=== PATIENT | male | born 1950 | race Caucasian/White ===

== ENCOUNTER 2020-01-14 04:58 | Inpatient (IN) ==
--- NOTE | 2019-12-18 15:59 | PAT Medication Instructions ---
Medication Instructions Date of Service December 18, 2019 Home Medications amlodipine 5 mg PO QAM aspirin 81 mg PO QAM carvedilol 6.25 mg PO BID chlorthalidone 25 mg PO QAM cholecalciferol (vitamin D3) [Vitamin D3] 1,000 unit PO QAM insulin aspart U-100 [Novolog U-100 Insulin aspart] 1 sliding scale dose SUBCUT USEASDIRECTD insulin degludec [Tresiba FlexTouch U-100] 82 unit SUBCUT QAM irbesartan 300 mg PO QAM metformin 1,000 mg PO BID potassium chloride 10 meq PO QAM rosuvastatin 10 mg PO Q OTHER DAY tamsulosin 0.4 mg PO QPM Continue as directed rosuvastatin 10 mg PO Q OTHER DAY DO NOT take the morning of surgery metformin 1,000 mg PO BID potassium chloride 10 meq PO QAM irbesartan 300 mg PO QAM insulin aspart U-100 [Novolog U-100 Insulin aspart] 1 sliding scale dose SUBCUT USEASDIRECTD chlorthalidone 25 mg PO QAM cholecalciferol (vitamin D3) [Vitamin D3] 1,000 unit PO QAM Take morning of surgery With a small sip of water, OTHERWISE NOTHING TO EAT OR DRINK AFTER MIDNIGHT: amlodipine 5 mg PO QAM aspirin 81 mg PO QAM carvedilol 6.25 mg PO BID Take evening before surgery carvedilol 6.25 mg PO BID insulin aspart U-100 [Novolog U-100 Insulin aspart] 1 sliding scale dose SUBCUT USEASDIRECTD metformin 1,000 mg PO BID tamsulosin 0.4 mg PO QPM Insulin Dependent Diabetic Patients * Test your blood sugar the morning of surgery * If Blood Sugar is GREATER THAN 150, take HALF of your regular dose of: insulin degludec [Tresiba FlexTouch U-100] (41 units) * If Blood Sugar is LESS THAN 150, DO NOT TAKE ANY: insulin degludec [Tresiba FlexTouch U-100] 82 unit SUBCUT QAM Other Notes If you have any questions please call us at [phone] or [phone] or [phone] or [phone]
--- NOTE | 2019-12-19 08:23 | History & Physical Report ---
Date of Service December 19, 2019 date of surgery: 01-14-20 Assessment & Plan (1) Arthritis of knee, left: Risks and benefits of procedure discussed in detail today, patient would like to proceed with a Left total knee replacement at [facility] as scheduled. will obtain medical clearance from Dr Campbell prior to surgery as well as obtain PATs at [facility]. Will place on ASA 81mg po bid x 1 month post op, f/u 2 weeks post op for routine post-operative care and x-ray, sooner if having any problems. will make arrangements for HHPT at the time of discharge. At this point in time, has failed conservative measures and would like to proceed with surgical intervention. The risks and benefits have been discussed including, but not limited to, risk of infection, nerve injury, stiffness, loss of motion, failure to improve, etc. Reasonable outcomes and options of treatment were discussed. An explanation of appropriate alternatives to the procedure that may be advantageous were discussed and their risks and benefits, as well as the risks and benefits of not proceeding with treatment. I offered to answer any additional inquiries concerning the treatment involved. All the patient's questions were answered. The patient is agreeable, understanding of the treatment plan and alternatives, and wishes to proceed with the treatment plan. History of Present Illness Chief Complaint: left knee pain Primary Care Provider: Slade Campbell Mr Licea is a 69 year old male who is here for a follow up of left knee pain, presents for pre-op prior to a left total knee replacement at [facility]. He presents with pain and stiffness on the left side. He states that the symptoms have been chronic non-traumatic. Currently the patient states that the symptoms are moderate-severe. The pain is described as aching and throbbing. He rates his current pain as 2/10. The symptoms are aggravated by ascending stairs, daily activities, descending stairs, first steps while awake, kneeling, movement, repetitive activities, sleeping on the affected side, squatting, standing, walking and weight bearing. In addition to left knee pain the patient is also experiencing crepitus, decreased mobility, difficulty bending, difficulty going to sleep, limping, instability, nighttime awakening, pain, stiffness, tenderness and weakness. Patient is unable to take NSAIDS d/t adverse reaction, tachycardia and shortness of breath. Advised by PCP to not take NSAIDS other than ASA 81mg. He has been treated with a corticosteroid injection on the left side. Patient has been treated with previous visco supplementation. Patient has tried use of knee brace w/ ambulation. Allergies Allergy/AdvReac Type Severity Reaction Status Date / Time NSAIDS (Non-Steroidal Allergy Tachycardia Verified 12/12/19 11:18 Anti-Inflamma Penicillins Allergy Tachycardia Verified 12/12/19 11:18 Home Medications Home Medications Medication Instructions Recorded Confirmed Type amlodipine 5 mg PO QAM 05/19/19 12/12/19 History aspirin 81 mg PO QAM 05/19/19 12/12/19 History carvedilol 6.25 mg PO BID 05/19/19 12/12/19 History chlorthalidone 25 mg PO QAM 05/19/19 12/12/19 History cholecalciferol (vitamin D3) 1,000 unit PO QAM 05/19/19 12/12/19 History [Vitamin D3] insulin aspart U-100 [Novolog 1 sliding scale dose SUBCUT 05/19/19 12/12/19 History U-100 Insulin aspart] USEASDIRECTD insulin degludec [Tresiba 82 unit SUBCUT QAM 05/19/19 12/12/19 History FlexTouch U-100] irbesartan 300 mg PO QAM 05/19/19 12/12/19 History metformin 1,000 mg PO BID 05/19/19 12/12/19 History potassium chloride 10 meq PO QAM 05/19/19 12/12/19 History rosuvastatin 10 mg PO Q OTHER DAY 05/19/19 12/12/19 History tamsulosin 0.4 mg PO QPM 05/19/19 12/12/19 History Past Med/Surg History Medical History Benign tumor of adrenal gland BPH (benign prostatic hyperplasia) Diabetes mellitus, type 2 IDDM History of basal cell cancer History of bladder cancer S/P TURBT + BCG TREATMENT History of liver failure DRUG INDUCED - RESOLVED (2001 - PRESCRIBED TEQUIN) History of myocardial infarction 2016 HTN (hypertension) Hyperlipemia Lactose intolerance Surgical History History of basal cell carcinoma (BCC) excision History of biopsy ADRENAL GLAND TUMOR History of cardiac cath 2017 - [facility] - 1 STENT - FOLLOWS W/ [facility] CARDIO History of colonoscopy History of cystoscopy x8 History of ERCP History of heart artery stent X 1 History of liver biopsy History of surgery TURBT History of tonsillectomy Social History Preferred Language: Serbian Communication Ability: Effective 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 Beliefs That Will Affect Care: None Current Living Situation: Spouse Other Information That Helps Us Care for You: No Feels Safe at Home: Yes Safety Concerns: Feels Safe At This Time Smoking Status: Current every day smoker Tobacco Type: cigarettes ; Cigarettes Per Day: 1 ppd ; Do You Dip or Chew Tobacco: No ; Second Hand Exposure: Yes ; Tobacco Cessation Education Requested by Patient: No Hx Alcohol Use: No Hx Substance Use: No Review of Systems Review of Systems: All systems reviewed & are unremarkable except as noted in HPI & below Constitutional: no fever, no chills and no sweats Respiratory: no cough and no dyspnea Cardiovascular: no chest pain, no dyspnea and no orthopnea Gastrointestinal: no abdominal pain, no nausea and no vomiting Musculoskeletal: as per Subjective / HPI Physical Exam Physical Exam: Ht: 5ft 10in Wt: 108.86kg BP: 124/72 Constitutional: WD/WN, vitals as above no acute distress Respiratory: normal respiratory effort, lungs clear to auscultation no respiratory distress, no labored breathing and does not use accessory muscles Cardiovascular: RRR, no murmur, no edema Gastrointestinal (Abdomen): normal bowel sounds, soft, nontender, no hepatosplenomegaly Musculoskeletal: Knee: + knee abnormal to inspection (Left knee-), + deformity (varus defomity on radiographs), + effusion (+1 effusion), + limited ROM of knee (ROM 0/3/110), + knee ROM with crepitation, + joint line tenderness (medial joint line) and + Jarocho's sign positive; no skin erythema, no ecchymosis, no valgus laxity, no varus laxity, anterior drawer test negative, Adarsh's sign negative and pivot shift test negative Results & Data Results & Data ([facility]) Diagnostic Findings Left Knee X-ray March 2019 confirms advanced degenerative changes to the left knee, greatest medial compartments and patellofemoral joint, showing joint space narrowing, osteophyte formation and subchondral sclerosis. no acute bony pathology noted.
--- NOTE | 2019-12-19 12:16 | Anesthesiology Consultation ---
Date of Service December 19, 2019 Assessment & Plan (1) Encounter for pre-operative examination: COVID Status: As of 12/18 assessment, patient denies travel to endemic area, known exposure/sick contacts, or symptoms of COVID19. Patient instructed to follow strict social distancing guidelines, wear a mask in public and avoid travel for 14 days prior to surgery. Preoperative COVID19 testing to be completed prior to surgery (01/04 at [facility]). Patient made aware to self-isolate as much as possible between COVID testing and surgery. Chart Review Chart Review: Acceptable Risk for Surgery (pending surgeon-ordered PCP and card io clearances) and Patient seen in Pre Admission Testing Teaching & Discussion Instructed NPO after midnight before surgery, except medications with 15 cc of water. Medication instructions provided according to the PAT guidelines. History Surgery Operation Date: 01/14/20 11:10 Proposed Procedures p Left Total Knee Arthroplasty - Félix Ortiz DO Height/Weight Height: 5 ft 10 in Weight: 110.6 kg Allergies Allergy/AdvReac Type Severity Reaction Status Date / Time NSAIDS (Non-Steroidal Allergy Tachycardia Verified 12/12/19 11:18 Anti-Inflamma Penicillins Allergy Tachycardia Verified 12/12/19 11:18 Medications Home Medications Medication Instructions Recorded Confirmed Last Taken amlodipine 5 mg PO QAM 05/19/19 12/12/19 Unknown aspirin 81 mg PO QAM 05/19/19 12/12/19 Unknown carvedilol 6.25 mg PO BID 05/19/19 12/12/19 Unknown chlorthalidone 25 mg PO QAM 05/19/19 12/12/19 Unknown cholecalciferol (vitamin D3) 1,000 unit PO QAM 05/19/19 12/12/19 Unknown [Vitamin D3] insulin aspart U-100 [Novolog 1 sliding scale dose SUBCUT 05/19/19 12/12/19 Unknown U-100 Insulin aspart] USEASDIRECTD insulin degludec [Tresiba 82 unit SUBCUT QAM 05/19/19 12/12/19 Unknown FlexTouch U-100] irbesartan 300 mg PO QAM 05/19/19 12/12/19 Unknown metformin 1,000 mg PO BID 05/19/19 12/12/19 Unknown potassium chloride 10 meq PO QAM 05/19/19 12/12/19 Unknown rosuvastatin 10 mg PO Q OTHER DAY 05/19/19 12/12/19 Unknown tamsulosin 0.4 mg PO QPM 05/19/19 12/12/19 Unknown Past Medical History Medical History Benign tumor of adrenal gland BPH (benign prostatic hyperplasia) CAD (coronary artery disease) s/p ID 2016 with single stent. Diabetes mellitus, type 2 IDDM History of basal cell cancer History of bladder cancer S/P TURBT + BCG TREATMENT History of liver failure DRUG INDUCED - RESOLVED (2001 - PRESCRIBED TEQUIN) History of myocardial infarction 2016 HTN (hypertension) Hyperlipemia Lactose intolerance Exercise / Class Metabolic Activity II 4-5 Yardwork/Stairs/Walk up hill (Denies CP or SOB with 1 FOS, does daily at home) Past Surgical History Surgical History History of basal cell carcinoma (BCC) excision History of biopsy ADRENAL GLAND TUMOR History of cardiac cath 2017 - [facility] - 1 STENT - FOLLOWS W/ [facility] CARDIO History of colonoscopy History of cystoscopy x8 History of ERCP History of heart artery stent X 1 History of liver biopsy History of surgery TURBT History of tonsillectomy Past Anesthesia History No Hx of Anesthesia Complications and No Family Hx of Anesthesia Complications History of PONV No Hx of PONV and No Hx of Motion Sickness Social History Smoking Status: Current every day smoker tobacco type: cigarettes Smoking cigarettes per day: 1 ppd Do You Dip or Chew Tobacco: No Hx Alcohol Use: No Hx Substance Use: No substance use type: does not use Review of Systems Pt denies any recent chest pain, shortness of breath, palpitations, cough, fever or URI. Physical Exam Vital Signs BP: 130/74 P: 56bpm SPO2: 94% RA T: 98.0 F R: 18 ENMT Mouth: + chipped teeth (lower L molar); no dental restorations and no loose teeth Thyromental Distance: < 3.5 Finger Breadths (3) Mallampati Class: II Neck normal visual inspection and + facial hair (very short quiroga); neck extension not limited Respiratory normal respiratory effort Auscultation: + rhonchi (very soft R lung base, cleared with coughing, otherwise CTA) Cardiovascular Rate/Rhythm: regular rate and regular rhythm Heart Sounds: + murmur (I/) Vessels: no carotid bruit Extremities: no edema Testing Laboratory Results PT 10.6 Seconds (9.0-12.0) 12/19/19 12:32 INR 1.0 (0.9-1.1) 12/19/19 12:32 APTT 28.3 Seconds (21.0-31.0) 12/19/19 12:32 Hemoglobin A1c 7.9 % (4.5-5.6) H 12/19/19 12:32 Urine Color Dark Yellow 12/19/19 12:32 Urine Appearance Clear (Clear) 12/19/19 12:32 Urine pH 5.5 (4.5-7.5) 12/19/19 12:32 Ur Specific [place] 1.027 (1.000-1.030) 12/19/19 12:32 Urine Protein Negative (Negative) 12/19/19 12:32 Urine Glucose (UA) Negative (Negative) 12/19/19 12:32 Urine Ketones Trace (Negative) H 12/19/19 12:32 Urine Nitrite Negative (Negative) 12/19/19 12:32 Ur Leukocyte Esterase Negative (Negative) 12/19/19 12:32 Blood Type B Positive 12/19/19 12:32 Antibody Screen NEGATIVE 12/19/19 12:32 12/19/19 12:32 Urine Culture - Final Urine,Clean Catch No growth - less than 1,000 colonies/mL. 12/16/19 WBC: 11.3 H/H: 17.3/52.2 PLATELETS: 295 SODIUM: 136 POTASSIUM: 3.5 CHLORIDE: 98 CO2: 31 BUN: 18 CREATININE: 0.90 GLUCOSE: 143 Electrocardiogram Date: 05/26/19 Findings: + SB @ (56bpm) Chest X-Ray Date: 12/16/19 Findings: + NAD Echocardiogram Date: 06/30/16 EF: 55-60% Normal LV chamber size. Moderate basal to mid inferior/inferolateral hypokinesis. Mildly thickened aortic valve leaflets. No stenosis or regurgitation. Cardiac Catheterization Date: 06/29/16 Intervention: + ALICIA placed (to OM1) Two-vessel CAD. LAD with luminal irregularities. Large D1 with proximal 50% disease. AV groove circumflex with large OM1 100% proximal, mid. Dominant circumflex distally with multiple marginal branches. Circumflex PCI. OM 100% to 0% after wire passage and Xience drug-eluting 3.018 stent placement and postdilated with 3.5 x 8 mm noncompliant balloon. No complications. EF 50%. No mitral regurgitation. Inferior hypokinesis.
[2019-12-19 13:42] LABS: Partial Thromboplastin Time 28.3 Seconds (21.0-31.0); Prothrombin Time 10.6 Seconds (9.0-12.0)
[2019-12-19 13:45] LABS: Appearance Urine Clear (Clear); Bilirubin Urine Negative (Negative); Blood Urine Negative (Negative); Color Urine Dark Yellow; Glucose Urine UA Negative (Negative); Ketones Urine Trace (Negative); Leukocyte Esterase Urine Negative (Negative); Nitrite Urine Negative (Negative); Protein Urine Negative (Negative); Specific Gravity Urine 1.027 (1.000-1.030); Urobilinogen Urine Negative (Negative); pH Urine 5.5 (4.5-7.5)
[2019-12-19 14:22] LABS: Estimated Average Glucose 180 mg/dl; Hemoglobin A1C 7.9 % (4.5-5.6)
[2020-01-14] MEDS ORDERED: METOCLOPRAMIDE HCL 10 MG TABLET PO SCH (06:00)
[2020-01-14] MEDS ORDERED: FAMOTIDINE 20 MG TAB PO SCH (06:00)
[2020-01-14] MEDS ORDERED: CLINDAMYCIN 600 MG/54 ML BAG IV SCH (06:00)
[2020-01-14] MEDS ORDERED: dexAMETHasone 4 MG TAB PO SCH (06:00)
[2020-01-14] MEDS ORDERED: CeleBREX 200 MG CAP PO SCH (06:00)
[2020-01-14] MEDS ORDERED: TRANEXAMIC ACID 1,000 MG **IV Pre-op IV SCH (06:00)
[2020-01-14] MEDS ORDERED: TRANEXAMIC ACID 1,000 MG **IV Intra-op IV SCH (06:00)
[2020-01-14] MEDS ORDERED: ACETAMINOPHEN 500 MG TAB PO SCH (06:00)
[2020-01-14] MEDS ORDERED: LR 500ML BOLUS, THEN 15ML/HR IV SCH (06:00)
[2020-01-14] MEDS ORDERED: GABAPENTIN 300 MG CAP PO SCH (06:00)
[2020-01-14] MEDS ORDERED: BUPIVACAINE 0.5 % 5 MG/1 ML PF 10ML VIAL ONE (06:17)
[2020-01-14] MEDS ORDERED: MIDAZOLAM HCL 1 MG/ML 2ML VIAL ONE (06:32)
[2020-01-14] MEDS ORDERED: PROPOFOL IV EMULSION 10 MG/ML 20 ML VIAL IV ONE ×3 (06:32→08:07)
[2020-01-14] MEDS ORDERED: fentaNYL citrate 100 MCG/2 ML VIAL ONE (06:32)
[2020-01-14] MEDS ORDERED: LIDOCAINE HCL 2% 2 ML VIAL/AMP(20MG/ML) INFIL ONE (06:34)
[2020-01-14] MEDS ORDERED: BACITRACIN INJ 50,000 UNIT VIAL ONE (06:38)
[2020-01-14] MEDS ORDERED: fentaNYL citrate 100 MCG/2 ML VIAL IV PRN (06:45)
[2020-01-14] MEDS ORDERED: ATROPINE SULFATE 0.1 MG/ML 10ML SYR IV PRN (06:45)
[2020-01-14] MEDS ORDERED: ePHEDrine sulfate 50 MG/ML AMP IV PRN (06:45)
[2020-01-14] MEDS ORDERED: ONDANSETRON INJ 2 MG/ML 2 ML VIAL IV PRN ×2 (06:45→09:57)
--- NOTE | 2020-01-14 07:09 | History & Physical Bridge Note ---
Date of Service January 14, 2020 History & Physical Bridge Note I have examined the patient, reviewed the History & Physical and in the interval since the performance of the History & Physical I have noted the following changes of clinical significance: no changes noted
[2020-01-14] MEDS ORDERED: ePHEDrine sulfate 50 MG/ML SYR ONE (07:36)
[2020-01-14] MEDS ORDERED: ONDANSETRON INJ 2 MG/ML 2 ML VIAL ONE (07:49)
[2020-01-14] MEDS ORDERED: ROPIVACAINE 0.5% HCL/PF 150 MG, BUPIVACAINE 0.5% MPF 30 ML, EPINEPHrine 30MG/30ML (OR U... INSTIL SCH (08:00)
--- NOTE | 2020-01-14 08:10 | Operative Report ---
Post Operative Report Pre & Post Diagnosis Operation Date: 01/14/20 07:00 Pre-Op Diagnosis: LEFT KNEE OSTEOARTHRITIS Post-Op Diagnosis: LEFT KNEE OSTEOARTHRITIS I identified the patient and participated in the time-out.: Yes Procedure Operation Date: 01/14/20 07:00 Actual Procedures p Left Total Knee Arthroplasty(Left) utilizing [employer] journey to non- block total knee arthroplasty size 6 femur 5 tibia 10 polyethylene 32 oval patella- Félix Ortiz DO Surgeon Félix Ortiz DO Licensed Chemical Spray Technician NORMA Bazan Estimated Blood Loss 5 Findings Consistent with Post-Op Diagnosis Patient presents with severe end-stage DJD left knee varus alignment subchondral cystic changes marginal osteophytes sclerosis [id number] eburnated bone with moderate to large effusion nonresponse to conservative management Specimens Bone and cartilage Drains Medium bore Hemovac Anesthesia Type MAC Spinal Regional Complications none Disposition Accompanied Patient To Recovery: No Disposition: Recovery Room Indications Patient presents ongoing planes of pain no response to conservative management clinic physical therapy anti-inflammatories relative rest activity modification corticosteroid injection Visco supplementation above intraoperative findings noted time surgery Description of Procedure After proper prepping and draping of the left lower extremity anterior midline incision was made over the region of the extensor extensor mechanism after meticulous hemostasis was obtained and maintained in subcutaneous tissues a medial parapatellar incision was made The patella was subluxed lateralward the medial lateral gutter were cleaned from any hypertrophic synovitis and scar tissue of the distal femoral block was placed and the distal femoral osteotomy cut was made subsequently the chamfers anterior and posterior osteotomy cuts were made utilizing the 4-in-1 block the tibia was subsequently subluxed anteriorward medial and ateral meniscal remnants were excised in their entirety remnants of the anterior and posterior cruciate ligaments were excised in their entirety excellent exposure of the proximal tibia was obtained the tibial osteotomy guide was placed on the proximal tibial osteotomy cut was made once again the knee was irrigated with copious amounts of sterile saline solution the patella was subsequently everted lateralward thickened scar tissue around the patella was removed the patella was subsequently cut utilizing a freehand technique and was drilled prepared for final preparation and placement of patella socially flexion-extension gaps were checked and the equal and symmetric trials were placed to the appropriate femoral and tibial trials with poly-spacer being placed for equal flexion and extension gaps and full range of motion including extension to 0 and flexion to 140 the trial components after having been taken to recovery range of motion was subsequently removed meticulous hemostasis was obtained and maintained subsequently a knee block injection of joint cocktail including ropivacaine 0.5% 150 mg. Bupivacaine 0.5% epinephrine 1-200,030 mL's toradol 30 mg dexamethasone 4 mg ketamine 10 mg clonidine 100 micrograms normal saline solution 30 mg was infiltrated into the soft tissues of the posterior knee medial lateral gutters and periosteal synovium special attention was paid to protect neurovascular structures at all times subsequently trial components having been removed the knee was irrigated with sterile saline solution. debris was removed the proximal tibia was subsequently prepared and was made ready for the placement of the tibial component tibial component was also cemented and tamped into position the femoral component was subsequently placed and cemented in the position the patellar component was subsequently cemented in position because hemostasis once again obtained and maintained wound having been thoroughly irrigated with debridement and debridement lavage was performed as well as a medial parapatellar incision closed with #1 Vicryl in interrupted fashion subcutaneous was closed with #2 Vicryl skin was closed with skin clips. PA-C was necessary for prepping and drapping as well as wound closure of deep fascia Sub cutaneous tissue and skin and was necessary for the case. A sterile compressive dressing was placed patient was taken to recovery in stable condition of report dictated by Angel I attest to the content of the Intraoperative Record and any orders documented therein. Any exceptions are noted below. I attest to the content of the Intraoperative Record and any orders documented therein. Any exceptions are noted below.
--- NOTE | 2020-01-14 09:38 | XRay Report ---
XR knee LT 1 or 2V routine HISTORY: 69 years-old Male Surgical Post Op left knee total joint arthroplasty COMPARISON: None TECHNIQUE: 2 views of the left knee FINDINGS: Left knee total joint arthroplasty and patella resurfacing. Expected postoperative soft tissue swelli ng and deep tissue air or surgical drainage catheter. No acute fracture, malalignment or opaque forei gn body. IMPRESSION: Left knee total joint arthroplasty and patella resurfacing with expected postoperative ch anges. ACT 112: Negative or not required by law. The above report was generated using voice recognition software. It may contain grammatical, syntax o r spelling errors. Electronically signed by: Nikko Roberto M.D. 01/14/2020 9:36 AM
[2020-01-14] MEDS ORDERED: MAGNESIUM HYDROXIDE SUSP 30 ML UDC PO PRN (09:57)
[2020-01-14] MEDS ORDERED: HYDROmorphone INJ 1 MG/ML SYRINGE IV PRN (09:57)
[2020-01-14] MEDS ORDERED: bisacodyL 10 MG SUPP PR PRN (09:57)
[2020-01-14] MEDS ORDERED: METOCLOPRAMIDE HCL INJ 5 MG/ML 2 ML VIAL IV PRN (09:57)
[2020-01-14] MEDS ORDERED: NALOXONE HCL 0.4 MG/1 ML VIAL/CARP IV PRN (09:57)
--- NOTE | 2020-01-14 09:59 | Anesthesiology Progress Note ---
Date of Service January 14, 2020 Anesthesia Post Procedure Vital Signs Vital Signs: Temp Pulse Pulse Pulse Resp BP BP 01/14/20 09:45 97.7 F 63 16 122/67 01/14/20 09:30 97.7 F 64 18 122/64 01/14/20 09:20 97.7 F 58 L 18 123/72 01/14/20 09:10 63 18 111/86 01/14/20 09:00 97.2 F L 69 18 110/62 01/14/20 08:50 97.2 F L 74 20 93/58 L 01/14/20 06:15 65 20 149/87 H 01/14/20 05:38 98.4 F 70 20 147/82 H Pulse Ox 01/14/20 09:45 92 01/14/20 09:30 95 01/14/20 09:20 96 01/14/20 09:10 93 01/14/20 09:00 97 01/14/20 08:50 93 01/14/20 06:15 96 01/14/20 05:38 95 Pain Intensity Left Knee: Pain Intensity: 0 Transfer of Care Handoff Completed per policy Notes Mental Status: alert / awake / arousable and participated in evaluation Patient Amnestic to Procedure: Yes Nausea / Vomiting: adequately controlled Pain: adequately controlled Airway Patency, RR, SpO2: stable & adequate BP & HR: stable & adequate Hydration State: stable & adequate Neuraxial Anesthesia: was administered and sensory block is resolving Anesthetic Complications: no major complications apparent and Pt Satisfied with anesthetic care
[2020-01-14] MEDS ORDERED: GLUCOSE 10 TABS/TUBE PO PRN (10:15)
[2020-01-14] MEDS ORDERED: GLUCOSE 40% GEL 15 GM TUBE PO PRN (10:15)
[2020-01-14] MEDS ORDERED: CARBOHYDRATES FOR HYPOGLYCEMIA PO PRN (10:15)
[2020-01-14] MEDS ORDERED: GLUCAGON FOR INJ 1 MG VIAL IM PRN (10:15)
[2020-01-14] MEDS ORDERED: DEXTROSE 50% 50 ML SYRINGE IV PRN (10:15)
[2020-01-14] MEDS ORDERED: PHARMACY GLYCEMIC MGMT CONSULT PRN (10:38)
--- NOTE | 2020-01-14 10:49 | Pharmacy Report ---
Glycemic Control Consultation - Date of Service January 14, 2020 - Scope Scope: Glycemic Pharmacist consulted for glycemic control and to write orders per [facility] inpatient glycemic control protocol. - Objective Weight: 109.996 kg Accuchecks BSG (last 24hrs): 01/14/20 01/14/20 01/14/20 05:25 08:51 10:14 POC Glucose 141 H 139 H 140 H HbA1c: Hemoglobin A1c 7.9 % (4.5-5.6) H 12/19/19 12:32 - Recent Pertinent Medications Outpatient Anti-diabetic Regimen: * Tresiba 82 units SC qAM * Novolog sliding scale w/ meals * Per patient, this is primarily based on personal experience and doesn't follow a specific scale * -generally, 10 units with breakfast, 10 units with lunch, and 20 units with dinner (usually a larger meal) * Metformin 1000 mg PO BIDM * A1c = 7.9 % (12/19/19) Risk Factors for Insulin Resistance: * Steroids: Intra-articular ortho mix * Infection: Perioperative clindamycin * Recent Surgery: POD #0 L TKA * Diet: T2DM - Assessment & Plan Assessment & Plan: ASSESSMENT: * KORI is a 69 year old male POD #0 s/p left TKA * Postoperative BSG of 139 mg/dL - received intra-articular ortho mix in surgery, but no other steroids * Confirmed with patient - he did not administer any insulin this morning * Will give home dose of Tresiba (converted to Lantus while inpatient) and start Novolog sliding scale * BSG of 236 mg/dL at lunch - won't overreact, as this was obtained less than 2 hours after completing breakfast PLAN FOR INPATIENT GLYCEMIC CONTROL: * Holding outpatient oral diabetes medications * Basal insulin - continue home dose * Lantus 82 units SC daily * Bolus insulin * NovoLog per scale ACHS or Q6hrs while NPO * Goal Range: Low 110 mg/dL - High 140 mg/dL * Correction Factor: 15 mg/dL/unit * Nutritional / Prandial insulin per carb ratio of 1 unit per 5 grams CHO c onsumed * Possible overnight checks this evening - will leave with second shift pharmacist to access * Please note that the plan above was derived based on current level of insulin resistance and hospital stress. These recommendations are appropriate for inpatient admission only. Plan of care upon discharge will need to be reassessed to avoid potential outpatient hypo/hyperglycemia. Thank you.
[2020-01-14] MEDS ORDERED: INSULIN GLARGINE SOLOSTAR 100 UNITS/ML 3 ML PEN SC SCH (11:00)
[2020-01-14] MEDS: IRBESARTAN 150 MG TAB PO SCH (11:15)
[2020-01-14] MEDS: DOCUSATE SODIUM 100 MG CAP PO SCH ×2 (11:15→21:00)
[2020-01-14] MEDS: CHOLECALCIFEROL 1,000 UNITS 25 MCG TAB PO SCH (11:15)
[2020-01-14] MEDS: MULTIVITAMIN TAB PO SCH (11:15)
[2020-01-14] MEDS: SODIUM CHLORIDE 0.9% 1000ML 1,000 ML IV SCH ×2 (11:16→21:08)
[2020-01-14] MEDS: POTASSIUM CHLORIDE 10 MEQ TABCR PO SCH (11:16)
[2020-01-14] MEDS: CHLORTHALIDONE 25 MG TAB PO SCH (11:16)
[2020-01-14] MEDS: ASPIRIN 81 MG ECTAB PO SCH ×2 (11:16→21:00)
[2020-01-14] MEDS: INSULIN ASPART 100 UNITS/ML 3 ML PEN SC SCH ×3 (12:42→20:58)
[2020-01-14] MEDS: KETOROLAC TROMETHAMINE 15 MG/ML VIAL IV SCH ×3 (12:45→17:32)
[2020-01-14] MEDS: ACETAMINOPHEN 500 MG TAB PO SCH ×2 (14:33→21:00)
[2020-01-14] MEDS: CLINDAMYCIN 600 MG in DEXTROSE 5% 50 ML IV SCH ×2 (14:33→22:11)
[2020-01-14] MEDS: carvediloL 6.25 MG TAB PO SCH (20:28)
[2020-01-14] MEDS ORDERED: SENNA 8.6 MG TAB PO SCH (21:00)
[2020-01-14] MEDS ORDERED: TAMSULOSIN HCL 0.4 MG CAP PO SCH (21:00)
[2020-01-15] MEDS: KETOROLAC TROMETHAMINE 15 MG/ML VIAL IV SCH ×2 (01:17→06:07)
[2020-01-15] MEDS: ACETAMINOPHEN 500 MG TAB PO SCH (06:07)
--- NOTE | 2020-01-15 06:50 | Orthopedic Progress Note ---
Date of Service January 15, 2020 Assessment & Plan (1) History of total left knee replacement: POD #1 s/p Left TKA pt/ot dvt proph with PHANI/SCD/ASA plan for d/c home with HHPT Admission and Anticipated Discharge Date Admission Date: January 14, 2020 Subjective POD #1 s/p Left TKA Review of Systems Constitutional: no fever, no chills and no sweats Respiratory: no cough and no dyspnea Cardiovascular: no chest pain and no dyspnea Gastrointestinal: no abdominal pain, no nausea and no vomiting Physical Exam Physical Exam: Laboratory Results PT 10.6 Seconds (9.0 -12.0) 12/19/19 12:32 INR 1.0 (0.9-1.1) 12/19/19 12:32 APTT 28.3 Seconds (21. 0-31.0) 12/19/19 12:32 PTT Ratio 1.0 12/19/19 12:32 POC Glucose 228 mg/dl (70-99) H 01/14/20 20:48 Estimat Average Gl ucose 180 mg/dl 12/19/19 12:32 Hemoglobin A1c 7.9 % (4.5-5.6) H 12/19/19 12:32 Urine Color Dark Yellow 12/19/19 12:32 Urine Appearance Clear (Clear) 12/19/19 12:32 Urine pH 5.5 (4.5-7.5) 12/19/19 12:32 Ur Specific Gravit y 1.027 (1.000-1.0 30) 12/19/19 12:32 Urine Protein Negative (Negati ve) 12/19/19 12:32 Urine Glucose (UA) Negative (Negati ve) 12/19/19 12:32 Urine Ketones Trace (Negative) H 12/19/19 12:32 Urine Blood Negative (Negati ve) 12/19/19 12:32 Urine Nitrite Negative (Negati ve) 12/19/19 12:32 Urine Bilirubin Negative (Negati ve) 12/19/19 12:32 Urine Urobilinogen Negative (Negati ve) 12/19/19 12:32 Ur Leukocyte Rizwana ase Negative (Negati ve) 12/19/19 12:32 Hepatitis C Ab Scr een Neg (Neg) 01/14/20 05:43 Blood Type B Positive 12/19/19 12:32 Antibody Screen NEGATIVE 12/19/19 12:32 Constitutional: WD/WN, vitals as above no acute distress Musculoskeletal: Left Leg: NVDI, calf SNT, negative kristin sign. DP palpable, able to wiggle toes/ankle movement without difficulty. dressing clean dry and intact. Vital Signs Temp 36.4 C L 01/15/20 03:25 Pulse 52 L 01/15/20 03:25 Resp 18 01/15/20 03:25 BP 135/76 01/15/20 03:25 Pulse Ox 92 01/15/20 03:25 Intake & Output 01/14/20 01/14/20 01/15/20 06:59 18:59 06:59 Intake Total 600 / 600 1383 / 2912 1529 / 2912 Output Total 585 / 2211 1626 / 2211 Balance 600 / 600 798 / 701 -97 / 701 Weight 109.996 kg Intake: IV 600 / 600 308 / 1362 1054 / 1362 Cleocin 600 mg In D5w 50 ml @ 54 / 108 54 / 108 100 mls/hr IV Q8H [facility] Rx#: [id number] CLEOCIN 600 mg In 54 ml @ 100 54 / 54 mls/hr IV PREO P [facility] Rx#: [id number] Lr 1,000 ml @ 15 mls/hr IV . 600 / 600 Q24H [facility] Rx#:[id number] Nss 1000ML 1,0 00 ml @ 100 mls/ 1000 / 1000 hr IV .Q10H [facility] Rx#:[id number] TRANEXAMIC ACI D / 0.7% NACL 1, 200 / 200 000 mg In 100 ml @ 600 mls/hr IV TODAY@0600 [facility] Rx#:[id number] IV Perioperative 900 / 900 Oral 175 / 650 475 / 650 Output: Urine 550 / 2125 1575 / 2125 Estimated Blood Loss 5 / 5 Drain Output Left Knee Hemo vac Results & Data ([facility]) Vital Signs (Past 12 Hours) Vital Signs Temp Pulse Resp BP Pulse Ox 01/15/20 03:25 36.4 C L 52 L 18 135/76 92 01/14/20 23:36 36.5 C 53 L 16 135/72 93 01/14/20 20:14 36.7 C 56 L 17 132/72 92 Diagnostic Findings XR knee LT 1 or 2V routine HISTORY: 69 years-old Male Surgical Post Op left knee total joint arthroplasty COMPARISON: None TECHNIQUE: 2 views of the left knee FINDINGS: Left knee total joint arthroplasty and patella resurfacing. Expected postoperative soft tissue swelling and deep tissue air or surgical drainage catheter. No acute fracture, malalignment or opaque foreign body. IMPRESSION: Left knee total joint arthroplasty and patella resurfacing with expected postoperative changes.
[2020-01-15 07:10] LABS: Hematocrit (blood only) 45.9 % (42-52); Hemoglobin 15.7 g/dL (14.0-18.0); Mean Corpuscular Hemoglobin 28.3 pg (25-34); Mean Corpuscular Hgb Conc 34.2 g/dL (32-36); Mean Corpuscular Volume 82.7 fL (80-100); Platelet Count 247 K/uL (130-400); RDW Standard Deviation 42.1 fL (36.4-46.3); Red Blood Count 5.55 M/uL (4.7-6.1); White Blood Count 18.01 K/uL (4.8-10.8)
[2020-01-15 07:36] LABS: BUN Creatinine Ratio 17.6 (10-20); Calcium 9.1 mg/dl (8.5-10.1); Creatinine Clr Calc Pharmacy 90.8 ml/min; Est GFR (African American) 92.1; Est GFR (Non-African American) 79.5; Potassium 3.9 mmol/L (3.5-5.1)
--- NOTE | 2020-01-15 08:33 | Pharmacy Report ---
Pharmacy Glycemic Short Note 2 - Date of Service January 15, 2020 - Glycemic Short BSG Results (Last 24 hours): 01/14/20 01/14/20 01/14/20 08:51 10:14 12:06 Glucose POC Glucose 139 H 140 H 236 H 01/14/20 01/14/20 01/15/20 17:31 20:48 06:44 Glucose 178 H POC Glucose 150 H 228 H 01/15/20 08:05 Glucose POC Glucose 164 H OUTPATIENT ANTIDIABETIC REGIMEN: * Tresiba 82 units SC qAM * Novolog sliding scale w/ meals * Per patient, this is primarily based on personal experience and doesn't follow a specific scale * -generally, 10 units with breakfast, 10 units with lunch, and 20 units with dinner (usually a larger meal) * Metformin 1000 mg PO BIDM * A1c = 7.9 % (12/19/19) ASSESSMENT: * KORI is now POD #1 s/p left TKA * Received intra-articular orthomix intraoperatively * BSGs ranging 139-236 mg/dL yesterday - *did eat uncovered meal at breakfast * Received home dose of 82 units of Lantus * 21 units of prandial/correctional insulin * 103 units total * Fasting BSG of 164 mg/dL this morning * Will continue current home basal dose at this time PLAN FOR INPATIENT GLYCEMIC CONTROL: * Hold outpatient oral diabetes medications * Basal insulin - continue home regimen * Lantus 82 units SQ qAM * Bolus insulin - continue * NovoLog per scale ACHS or Q6hrs while NPO * Goal Range: Low 110 mg/dL - High 140 mg/dL * Correction Factor: 15 mg/dL/unit * Nutritional / Prandial insulin per carb ratio of 1 unit per 5 grams CHO consumed
[2020-01-15] MEDS: OXYCODONE HCL IR 5 MG TAB (IMMEDIATE RELEASE) PO PRN ×2 (08:49→12:39)
[2020-01-15] MEDS: IRBESARTAN 150 MG TAB PO SCH (08:50)
[2020-01-15] MEDS: CHOLECALCIFEROL 1,000 UNITS 25 MCG TAB PO SCH (08:51)
[2020-01-15] MEDS: DOCUSATE SODIUM 100 MG CAP PO SCH (08:51)
[2020-01-15] MEDS: ASPIRIN 81 MG ECTAB PO SCH (08:51)
[2020-01-15] MEDS: CHLORTHALIDONE 25 MG TAB PO SCH (08:52)
[2020-01-15] MEDS: MULTIVITAMIN TAB PO SCH (08:52)
[2020-01-15] MEDS: POTASSIUM CHLORIDE 10 MEQ TABCR PO SCH (08:52)
[2020-01-15] MEDS: INSULIN ASPART 100 UNITS/ML 3 ML PEN SC SCH ×2 (08:56→12:40)
[2020-01-15] MEDS ORDERED: ROSUVASTATIN CALCIUM 10 MG TAB PO SCH (09:00)
[2020-01-15] MEDS ORDERED: INSULIN GLARGINE SOLOSTAR 100 UNITS/ML 3 ML PEN SC SCH ×2 (09:00→09:01)
[2020-01-15] MEDS ORDERED: AMLODIPINE BESYLATE 5 MG TAB PO SCH (09:00)
[2020-01-15] MEDS: carvediloL 6.25 MG TAB PO SCH (09:04)
--- NOTE | 2020-01-15 11:53 | Discharge Summary ---
Date of Service date of discharge: January 15, 2020 date of admission: 01-14-20 Admission HPI Per Admitting Provider Mr Licea is a 69 year old male who is here for a follow up of left knee pain, presents for pre-op prior to a left total knee replacement at [facility]. He presents with pain and stiffness on the left side. He states that the symptoms have been chronic non-traumatic. Currently the patient states that the symptoms are moderate-severe. The pain is described as aching and throbbing. He rates his current pain as 2/10. The symptoms are aggravated by ascending stairs, daily activities, descending stairs, first steps while awake, kneeling, movement, repetitive activities, sleeping on the affected side, squatting, standing, walking and weight bearing. In addition to left knee pain the patient is also experiencing crepitus, decreased mobility, difficulty bending, difficulty going to sleep, limping, instability, nighttime awakening, pain, stiffness, tenderness and weakness. Patient is unable to take NSAIDS d/t adverse reaction, tachycardia and shortness of breath. Advised by PCP to not take NSAIDS other than ASA 81mg. He has been treated with a corticosteroid injection on the left side. Patient has been treated with previous visco supplementation. Patient has tried use of knee brace w/ ambulation. Admission Exam Per Admitting Provider see H&P Principal Diagnosis left knee arthritis Discharge Exam Vital Signs Temp 36.5 C 01/15/20 10:29 Pulse 64 01/15/20 10:29 Resp 16 01/15/20 10:29 BP 160/82 H 01/15/20 10:29 Pulse Ox 96 01/15/20 10:29 Intake & Output 01/14/20 01/15/20 01/15/20 18:59 06:59 18:59 Intake Total 1383 / 2912 1529 / 2912 Output Total 585 / 2211 1626 / 2211 400 / 400 Balance 798 / 701 -97 / 701 -400 / -400 Weight 109.996 kg Intake: IV 308 / 1362 1054 / 1362 Cleocin 600 mg In D5w 50 ml @ 54 / 108 54 / 108 100 mls/hr IV Q8H [facility] Rx#: [id number] CLEOCIN 600 mg In 54 ml @ 100 54 / 54 mls/hr IV PREOP [facility] Rx#: [id number] Nss 1000ML 1,000 ml @ 100 mls/ 1000 / 1000 hr IV .Q10H [facility] Rx#:[id number] TRANEXAMIC ACID / 0.7% NACL 1, 200 / 200 000 mg In 100 ml @ 600 mls/hr IV TODAY@0600 [facility] Rx#:[id number] IV Perioperative 900 / 900 Oral 175 / 650 475 / 650 Output: Urine 550 / 2125 1575 / 2125 400 / 400 Estimated Blood Loss 5 / 5 Drain Output Left Knee Hemovac Constitutional WD/WN, vitals as above no acute distress Musculoskeletal left knee: NVDI, calf SNT, negative kristin sign. DP palpable, able to wiggle toes/ankle movement without difficulty. dressing clean dry and intact. expected post-operative bruising noted. Discharge Data Allergies Allergy/AdvReac Type Severity Reaction Status Date / Time NSAIDS (Non-Steroidal Allergy Tachycardia Verified 01/14/20 05:30 Anti-Inflamma Penicillins Allergy Tachycardia Verified 01/14/20 05:30 Consultations 01/14/20 09:57 Consult Case Management - Discharge Planning Routine Procedures Performed Operation Date: 01/14/20 07:00 Actual Procedures p Left Total Knee Arthroplasty(Left) - Félix Ortiz DO Ordered Studies 01/14/20 05:00 US - OR guided needle placemen Routine Hospital Course (1) History of total left knee replacement: POD #1 s/p Left TKA pt/ot dvt proph with PHANI/SCD/ASA plan for d/c home with HHPT Total Time Total Time Spent Total Time Spent (In Minutes): 20 Total Time Includes: Examination of the Patient, Discharge Planning and Medication Reconciliation Discharge Plan Discharge Items Patient Disposition: Home - Home Health Services Reason For Visit: LEFT KNEE OSTEOARTHRITIS Discharge Diagnosis: left total knee replacement Condition on Discharge: Good Activity: Per Instructions section Lifting: Wait until after follow-up appointment Non-emergency contact: Surgeon Call non-emergency contact if: you have any medication questions, your temperature is above 101, your wound has increased redness, your wound has increased drainage and your wound pain has increased Follow-up/Referrals: Slade Campbell M.D. [Primary Care Provider] - Diet: Carb Consistent or DM2 Addtl Attending Provider Instructions: ACTIVITY RECOMMENDATIONS: SELF CARE INSTRUCTIONS AFTER TOTAL KNEE REPLACEMENT A. You may need to continue a physical therapy program after discharge from the hospital. There are several options available to you. Your doctor will assist you in selecting the best one for you. 1. An out-patient facility 2 to 3 times a week for therapy or home therapy. 2. Continue working on all exercises taught to you in the hospital. Your goals should be to increase bending of your knee to 90 degrees and beyond and to fully straighten your knee. B. You may progress at your own pace from walking with a walker or crutches to a cane; then to no assistive devices. C. Make walking a part of your daily routine. Be up as much as comfortable with rest periods throughout the day. Rest with leg elevation is very important. Use the ice wrap frequently for the first 3-4 weeks. D. There are no restrictions on activities. You may ride in a car, shop, participate in director of advertising sales and all social activities. E. Wear the long elastic stockings (PHANI hose) 20 hours a day for 2 weeks after surgery. They can be removed several times a day for laundering and for a bath. F. You may shower, no tub baths until cleared by your doctor. SPECIAL CARE INSTRUCTIONS: VERY IMPORTANT TO READ AND REVIEW A. There are a few signs you need to watch for after you are home. Call [facility] [place] if you notice any of the followin. Increased severe knee pain. Some pain is expected especially when you exercise. 2. Increased swelling in your leg or knee; pain or swelling of the calf muscle in either lower leg. 3. Any fluid drainage from the incision. 4. Shortness of breath or chest pain. B. Please call [facility] at if you have any concerns or questions about your operation or recovery. The doctor or his nurse will return your call promptly. C. You must take antibiotics before dental work, bladder, bowel or other surgery. Your doctor will provide you with a permanent care to carry describing this precaution. IMPORTANT: * REMEMBER TO TAKE ASPIRIN, 81 MG, TWICE DAILY FOR 4 WEEKS UNLESS OTHERWISE DIRECTED. THIS IS YOUR BLOOD THINNER. * HIGH RISK PATIENTS MAY BE PRESCRIBED A STRONGER BLOOD THINNER. THIS WILL BE PROVIDED AT DISCHARGE. * CALL IF INCREASED PAIN, REDNESS, DRAINAGE OR FEVER GREATER THAT 101. * WEAR PHANI HOSE 20 HOURS PER DAY FOR 2 WEEKS. * DERMABOND Prineo- This is a mesh tape dressing that is covered with glue. It should remain in place until the incision is properly healed, usually 10-14 days. This dressing is designed to naturally slough off. You may trim the excess mesh tape as it peels off. Incision may be briefly wet in a shower. Dry immediately by blotting with a clean, dry towel. Do not bath or swim until instructed by your doctor. Do not scratch, rub, or pick at the dressing. Do not apply any topical ointments or lotions until dressing is completely removed and/or instructed by your doctor. There may be a small piece of suture material at one end of your incision. Do not pull or trim this. If it is bothersome or catching on clothing, you may cover it with a band-aid. IF INCISION IS LEAKING THROUGH DRESSING, CALL THE OFFICE . FOLLOW UP VISIT: If appointment is not already scheduled: Please call [facility] to make a follow-up appointment for 2 weeks after your surgery at . Pending Studies at Discharge: No Stand-Alone Forms: [facility], Opioid Pain Management, Smoking Cessation Medications and DC Order Prescriptions: New aspirin 81 mg Tablet,Delayed Release (Dr/Ec) 81 mg PO BID 30 Days Qty: 60 RF: 0 acetaminophen 500 mg Tablet 1,000 mg PO Q8 21 Days Qty: 126 RF: 0 oxycodone 5 mg Tablet 5 - 10 mg PO Q6H PRN (Reason: pain) Qty: 30 RF: 0 docusate sodium 100 mg Capsule 100 mg PO BID 10 Days Qty: 20 RF: 0 clindamycin HCl 300 mg capsule 300 mg PO TID 7 Days Qty: 21 RF: 0 Continued carvedilol 6.25 mg Tablet 6.25 mg PO BID RF: 0 potassium chloride 10 mEq Tablet Extended Release 10 meq PO QAM RF: 0 chlorthalidone 25 mg Tablet 25 mg PO QAM RF: 0 amlodipine 5 mg Tablet 5 mg PO QAM RF: 0 tamsulosin 0.4 mg Capsule 0.4 mg PO QPM RF: 0 insulin aspart U-100 [Novolog U-100 Insulin aspart] 100 unit/mL Solution 1 sliding scale dose SUBCUT USEASDIRECTD RF: 0 metformin 1,000 mg Tablet 1,000 mg PO BID RF: 0 irbesartan 300 mg Tablet 300 mg PO QAM RF: 0 rosuvastatin 10 mg Tablet 10 mg PO Q OTHER DAY RF: 0 cholecalciferol (vitamin D3) [Vitamin D3] 1,000 unit Tablet,Chewable 1,000 unit PO QAM RF: 0 Tresiba FlexTouch U-100 100 unit/mL (3 mL) Insulin Pen 82 unit SUBCUT QAM RF: 0 Discontinued aspirin 81 mg Tablet,Delayed Release (Dr/Ec) 81 mg PO QAM RF: 0 Discharge Orders: Discharge Order (Routine); Ordered 01/15/20 Ordered By: Baltazar Jeff/Other Patient Handouts: Managing Type 2 Diabetes, Understanding Knee Replacement, Knee Replacement Total Dc Admission Data Admit Date/Time: 01/14/20 08:52 Attending Provider: Félix Ortiz Admit Provider: Félix Ortiz Primary Care Provider: Slade Campbell Other Interventions: Discharge Summary Assessment (RN) Last Done: 01/15/20 10:29
== END 2020-01-15 13:35 | disposition home health service (06) | DRG 470 ==
LOC: ASU 04:58 → 3E 08:52